=== PATIENT | male | born 1950 | race Caucasian/White ===

== ENCOUNTER → 2016-07-06 | Outpatient (CLI) | payer MEDICAID ==
[~2016-07-06] MED LIST: ACET325T21 PO; APIX5TAB PO; ATEN25TA PO; DIAZ2TAB PO; DILT240C77 PO; MULT-750 PO; NAPR220C2 PO; OXYC5TAB3 PO
== END | disposition home or self-care (01) ==
LOC: CFH 08:55
PROVIDERS: ATTEND Nurse Practitioner Family
DX: K21.9 Gastro-esophageal reflux disease without esophagitis (principal)
CPT/HCPCS: 74241

== ENCOUNTER 2017-11-11 22:16 | Emergency (ER) | payer MEDICAID, MEDICARE ==
[~2017-11-11] VITALS: Ht 180.3 cm; Wt 85.1 kg
[2017-11-11 23:07] LABS: BASOPHILS % (AUTO) 0 % (0-1); EOSINOPHILS # (AUTO) 0.05 x10^3/uL (0-0.4); EOSINOPHILS % (AUTO) 0 % (1-7); LYMPHOCYTES # (AUTO) 0.55 x10^3/uL (1-3.4); LYMPHOCYTES % (AUTO) 5 % (22-44); MD NO; MEAN CORPUSCULAR HEMOGLOBIN 32.4 pg (27.5-34.5); MEAN CORPUSCULAR HGB CONC 33.9 g/dL (33.2-36.2); MEAN CORPUSCULAR VOLUME 95.7 fL (81-97); MEAN PLATELET VOLUME 9.4 fL (7.4-10.4); MONOCYTES # (AUTO) 0.11 x10^3/uL (0.2-0.8); MONOCYTES % (AUTO) 1 % (2-9); NEUTROPHILS # (AUTO) 10.25 x10^3/uL (1.8-6.8); NEUTROPHILS % (AUTO) 94 % (42-75); PLATELET COUNT 157 x10^3/uL (130-400); RED BLOOD COUNT 5.41 x10^6/uL (4.38-5.82); RED CELL DISTRIBUTION WIDTH 13.5 % (9.4-14.8)
[2017-11-11 23:17] LABS: ALBUMIN 4.2 g/dL (3.4-5.0); ANION GAP 8 mmol/L (5-15); CALCIUM 8.5 mg/dL (8.5-10.1); CHLORIDE 108 mmol/L (98-107); CREATININE 1.52 mg/dL (0.7-1.3)
[2017-11-11 23:20] LABS: TROPONIN I < 0.015 ng/mL (0.000-0.045)
[2017-11-12] MEDS ORDERED: SODIUM CHLORIDE 0.9% 1,000ML IVBOLUS ONE
[2017-11-12 02:11] VITALS: BP 108/50
[2017-11-12 02:25] LABS: MICROSCOPIC INDICATED
[2017-11-12 02:35] LABS: CULTURE INDICATED? YES
== END 2017-11-12 02:58 | disposition home or self-care (01) ==
LOC: ED 22:56
DX: R42 Dizziness and giddiness (principal); R55 Syncope and collapse; I10 Essential (primary) hypertension; Z86.718 Personal history of other venous thrombosis and embolism
CPT/HCPCS: 36415; 80048; 81001; 82040; 84484; 85025; 87086; 93005; 96360; 99285; J7030

== ENCOUNTER 2019-02-10 14:42 | Outpatient (CLI) | payer MEDICARE | END 2019-02-10 23:59 | disposition home or self-care (01) | LOC: CFH 14:42 | PROVIDERS: ATTEND Emergency Medicine | DX: K76.0 Fatty (change of) liver, not elsewhere classified (principal); N28.1 Cyst of kidney, acquired; R19.7 Diarrhea, unspecified | CPT/HCPCS: 76700 ==

== ENCOUNTER 2019-12-12 14:17 | Outpatient (CLI) | payer MEDICARE ==
[~2019-12-12 14:17] MED LIST changes: +ACET-2274 PO; -ACET325T21 PO
== END 2019-12-12 23:59 | disposition home or self-care (01) ==
LOC: CFH 14:17
DX: M50.30 Other cervical disc degeneration, unspecified cervical region (principal); M48.02 Spinal stenosis, cervical region
CPT/HCPCS: 72125

== ENCOUNTER → 2019-12-28 | Outpatient (CLI) | payer MEDICARE | END | disposition home or self-care (01) | LOC: CFH 16:13 | PROVIDERS: ATTEND Family Medicine | DX: G31.9 Degenerative disease of nervous system, unspecified (principal); G43.009 Migraine without aura, not intractable, without status migrainosus; J32.9 Chronic sinusitis, unspecified; W19.XXXA Unspecified fall, initial encounter; Y93.89 Activity, other specified; Y92.89 Other specified places as the place of occurrence of the external cause; Y99.8 Other external cause status | CPT/HCPCS: 70450 ==